=== PATIENT | female | born 1980 | race Caucasian/White ===

== ENCOUNTER 2017-05-28 12:39 | Emergency (ER) | payer OTHER ==
[~2017-05-28] VITALS: Ht 165.1 cm; Wt 69.5 kg
[2017-05-28 12:57] VITALS: BP 132/102
[2017-05-28] MEDS ORDERED: ULTRAM50 MG PO (14:50)
[2017-05-28] MEDS ORDERED: CLEOCIN300 MG PO (14:50)
== END 2017-05-28 15:20 | disposition home or self-care (01) ==
LOC: EME 12:39
DX: K04.7 Periapical abscess without sinus (principal); K03.81 Cracked tooth; Z88.0 Allergy status to penicillin; Z88.2 Allergy status to sulfonamides; R03.0 Elevated blood-pressure reading, without diagnosis of hypertension; Z87.891 Personal history of nicotine dependence
CPT/HCPCS: 99281; 99283